=== PATIENT | male | born 1930 | race Caucasian/White ===

== ENCOUNTER 2016-08-25 13:30 | Inpatient (IN) | payer MEDICARE, OTHER ==
[~2016-08-25] VITALS: Ht 175.3 cm; Wt 50.4 kg
--- NOTE | ~2016-08-25 | HP ---
PATIENT'S NAME: LISETTE HARRIS [facility] AGE: 86 Y [address] ROOM: [id number] [place], [place] [address] LOCATION: [facility] ADMIT DATE: 08/25/2016 History & Physical DISCHARGE DATE: FAMILY PHYSICIAN: Compa Guerrier MD ATTENDING PHYSICIAN: ML BARNES work type 08/26/16 AO DATE OF SERVICE: I am dictating for the Hospitalist Service particularly for Dr. Bernardino Elliott who is acting as a consulting physician, Internal Medicine. CHIEF COMPLAINT: Right hip fracture. HISTORY OF PRESENT ILLNESS: The history of the present illness is obtained from visiting with the patient whom himself is a poor historian, reviewing medical records from Dr. Guerrier's office along with the current [facility] chart. Mr. Harris is an 86-year-old man with a pertinent medical history including Alzheimer's dementia, COPD, GERD, and history of CVA. The patient resides at [facility]. There is a question of a recent fall on records, question of a fall on August 20. The patient apparently began complaining of right leg pain and staff felt he was having "spasm in his thigh." He was needing more assistance up to 2 assist for transferring and also had a "dragging right foot." Ultimately arrangements were made for the patient to be brought in for an x-ray and for evaluation with Dr. Barnes. An x-ray obtained on 08/25/2016 of the pelvis showed an acutely mild displaced fracture at the distal right femoral neck. An x-ray, 2 view, of the right femur showed the proximal femoral fracture. There was proximal migration and mild valgus angulation. Left hip was intact along with the bony pelvis. Therefore, Mr. Harris is being admitted and our service was asked to consult for operative clearance. In visiting with the patient, he is resting in the hospital bed, he is mildly agitated. The patient actually denies any pain at this point. He is alert, but unable to tell me where he is. He is not able to tell me his living situation at this time. Family does not happen to be at the bedside at the time of our exam. PAST MEDICAL HISTORY: Includes: 1. History of anxiety. 2. BPH noted to be without urinary obstruction. PATIENT'S NAME: LISETTE HARRIS [facility] AGE: 86 Y [address] ROOM: [place] [address] LOCATION: [facility] ADMIT DATE: 08/25/2016 History & Physical DISCHARGE DATE: FAMILY PHYSICIAN: Compa Guerrier MD ATTENDING PHYSICIAN: ML BARNES 3. History of chronic diarrhea. 4. COPD. 5. History of CAD. 6. History of Alzheimer's dementia. 7. History of depression with anxiety. 8. History of gastric ulcer. 9. History of CVA. 10. History of hypercholesterolemia/hyperlipidemia. 11. History of hypertension, essential. 12. Iron-deficiency anemia. 13. GERD. PAST SURGICAL HISTORY: 1. Cataract extraction. 2. Hemorrhoidectomy. 3. Partial gastrectomy. 4. History of PTCA. 5. History of excision of a facial lesion. FAMILY HISTORY: Family history is reviewed and found to be noncontributory to the patient's current situation. SOCIAL HISTORY: It is noted that the patient is a current tobacco user. The patient is unable to quantify for me. Also, noted on records, he is a social drinker. The patient is . ALLERGIES: IT IS NOTED THAT THE PATIENT HAS A PENICILLIN ALLERGY. REVIEW OF SYSTEMS: A 13-point review of systems is reviewed and is negative other than what is noted in the outlining history of present illness. MEDICATIONS: At the time of admission: 1. Tylenol 650 mg p.o. q.6 h. p.r.n. pain. 2. ASA 81 mg p.o. daily. 3. Bismuth salicylate 30 mL p.o. q.2 h. p.r.n. indigestion up to 6 doses in 24 hours. 4. Calcium with vitamin D 1 tablet p.o. q.a.m. 5. Citalopram 10 mg p.o. q.a.m. 6. Plavix 75 mg p.o. q.a.m. 7. Ipratropium albuterol sulfate 1 vial INH twice daily and q.6 h. p.r.n. PATIENT'S NAME: LISETTE HARRIS [facility] AGE: 86 Y [address] ROOM: [place] [address] LOCATION: [facility] ADMIT DATE: 08/25/2016 History & Physical DISCHARGE DATE: FAMILY PHYSICIAN: Compa Guerrier MD ATTENDING PHYSICIAN: ML BARNES shortness of breath. 8. Lactamase 9000 units 2 tabs up to 3 times daily with meals and p.r.n. with snacks. 9. Lactobacillus 1 capsule p.o. q.a.m. 10. Lactose free Boost Breeze 6 ounces q.i.d. 11. Creon 24,000 units capsule 2 capsules p.o. t.i.d. 12. Namenda 10 mg p.o. daily. 13. Protonix 40 mg p.o. q.a.m. 14. Pravastatin 40 mg p.o. q.h.s. PHYSICAL EXAMINATION: VITAL SIGNS: Height 5 feet, 9 inches, weight 50.4 kg, BMI 16.4. Temp is 97.7, blood pressure 161/86, respirations 24, pulse is 73, O2 sat was 97% on room air, which bumped to 91% on 2 L of O2 per nasal cannula. GENERAL: The patient is an elderly slightly shelved appearing gentleman of slight build who is resting in bed and does not appear to be uncomfortable, but is slightly irritable. HEENT: Normocephalic, atraumatic. There is no scleral icterus. Extraocular movements are intact. Mucosal membranes appear moist. The patient has reasonable dentition. NECK: Midline. No masses appreciated. No thyromegaly. CV: The patient upon auscultation seems to have a regular rhythm and rate, S1 and S2. I cannot appreciate any murmurs. Heart sound is distant. I do not appreciate any edema of the extremities. Extremities are warm. CHEST: Clear to auscultation, diminished, particularly of the bilateral bases. ABDOMEN: Soft, nontender. I cannot appreciate any organomegaly. There are decreased bowel sounds. MUSCULOSKELETAL: The patient's nails appear normal without clubbing or cyanosis. The patient is on bed rest. Gait is not assessed. NEURO: Cranial nerves 2 through 12 are intact. The patient does have impairment of his cognitive function. He does have obvious confusion throughout our interview. The patient is alert. He is able to follow commands. LABORATORY DATA: CBC shows a white count 18,800, hemoglobin 8.5, hematocrit 27.6, platelets 698K, 85 neutrophils, 4 lymphocytes, and 10 monocytes. Renal panel sodium 142, potassium 3.8, chloride 104, bicarb 26, glucose 122, BUN 28, creatinine 1.3, and GFR 52. Prealbumin 14. UA negative for leukocytes or nitrites, proteinuria at 100 mg/dL, microscopically negative wbcs, rbcs 0-2, epithelial cells, few bacteria. Chest x-ray normal portable chest. Lungs are clear. Please refer to the aforementioned findings on the x-ray findings of the right femur and pelvis. EKG: An EKG was obtained. The patient does appear to have some PVCs. I will PATIENT'S NAME: LISETTE HARRIS [facility] AGE: 86 Y [address] ROOM: [address] [address] LOCATION: [facility] ADMIT DATE: 08/25/2016 History & Physical DISCHARGE DATE: FAMILY PHYSICIAN: Compa Guerrier MD ATTENDING PHYSICIAN: ML BARNES review with Dr. Elliott. IMPRESSION: 1. Right proximal femur fracture, mildly displaced. The plan at this point is to proceed with a right hip hemiarthroplasty on 08/26/[address] Barnes. 2. The patient of course all things considered has a poor baseline going into this moderate risk surgery. 3. Chronic obstructive pulmonary disease. Continue with his inhalers and be aggressive with IS and O2 to keep sats greater than 90%. 4. Hypertension, essential. Does not appear the patient is currently on any antihypertensive. We will monitor this and treat as needed appropriately. 5. Alzheimer's dementia. We will continue with his Namenda. The patient will be at high-risk for postoperative delirium. Given his underlying dementia, we will try to limit use of narcotics as much as possible. 6. Hyperlipidemia, continue with the statin. 7. History of cerebrovascular accident, we will hold Plavix at this point. We will resume when felt reasonable postoperatively. 8. Generalized weakness. The patient will benefit from fpc care while recovering from his surgery. The patient will need placement. Care Management has been notified and are currently assessing options for plan of discharge. 9. Deep vein thrombosis prophylaxis. We will use sequential compression devices at this point. Deep vein thrombosis prophylaxis as per Orthopedics in the postoperative period. 10. Preoperative clearance. I will discuss this case further with Dr. Elliott and have him review records. Ultimately, clearance will come from Dr. Elliott, but presume that this patient will be cleared to proceed to the OR on 08/26/2016. Thank you for allowing us to help care for this pleasant patient. MANOJ NAZARIO PA-C FOR MD DOLORES PONCE/anna /[id number] CC: MD Compa Mejia MD PATIENT'S NAME: LISETTE HARRIS [facility] AGE: 86 Y [address] ROOM: [place] [address] LOCATION: [facility] ADMIT DATE: 08/25/2016 History & Physical DISCHARGE DATE: FAMILY PHYSICIAN: Compa Guerrier MD ATTENDING PHYSICIAN: ML BARNES Corrected work type 08/26/16 AO D: T: 922 HISTORY & PHYSICAL
--- NOTE | ~2016-08-25 | CON ---
PATIENT'S NAME: LISETTE HARRIS [facility] AGE: 86 Y [address] ROOM: [address] [address] LOCATION: [facility] ADMIT DATE: 08/25/2016 Consultation DISCHARGE DATE: FAMILY PHYSICIAN: Compa Guerrier MD ATTENDING PHYSICIAN: ML BARNES ADDENDUM: ASSESSMENT: Leukocytosis, not suspicious for infection given the results of the UA and chest x-ray. I suspect this may be stress induced. We will monitor. MANOJ B MICHEL NAZARIO FOR MD DOLORSE PONCE/anna /[id number] d: 08/26/16 0024 t: 09/06/16 1925, CONSULTATION REPORT
--- NOTE | ~2016-08-25 | OR ---
[facility] 86 Y [address] ROOM: [place] [address] LOCATION: [facility] ADMIT DATE: 08/25/2016 OR/Procedure Report DISCHARGE DATE: FAMILY PHYSICIAN: Compa Guerrier MD ATTENDING PHYSICIAN: ML BARNES SURGEON: Ml Barnes MD PARKS RECREATION COORDINATOR: 1. Charanjit Sanchez CST/JAME. 2. Ml Fletcher DATE OF PROCEDURE: 08/26/2016 PRE-OP DIAGNOSIS: Right hip displaced femoral neck fracture. POST-OP DIAGNOSIS: Right hip displaced femoral neck fracture. OPERATION: Right hip hemiarthroplasty. ANESTHESIA: General endotracheal anesthesia (spinal anesthesia precluded because he is on Plavix) plus local anesthesia (ropivacaine with epinephrine). ESTIMATED BLOOD LOSS: Less than 100 mL. DRAIN: None. SPECIMEN: None. COMPLICATIONS: None. IMPLANTS: 1. Marianna Accolade II, size 7, high-offset, uncemented femoral component. 2. A 50-mm bipolar femoral head with 28-mm inner femoral head with +4 mm neck length. INDICATIONS FOR SURGERY: Mr. Harris is an 86-year-old male who presents with a displaced right femoral neck fracture. The patient has been thoroughly counseled regarding risks, benefits, and limitations and alternatives to hemiarthroplasty. I have specifically reviewed the risks and implications of infection, deep venous thrombosis, pulmonary embolism, mortality, neurovascular complications, blood transfusion (and associated potential for disease transmission or transfusion reaction), instability, leg length discrepancy, mechanical deterioration of the components (due to wear and or loosening), and the potential need for revision. We have also discussed the potential need for conversion to total hip replacement. DESCRIPTION OF PROCEDURE: The patient was positioned in a lateral decubitus position with the right side up after administration of anesthesia and [facility] AGE: 86 Y [address] ROOM: [place] [address] LOCATION: [facility] ADMIT DATE: 08/25/2016 OR/Procedure Report DISCHARGE DATE: FAMILY PHYSICIAN: Compa Guerrier MD ATTENDING PHYSICIAN: ML BARNES prophylactic antibiotics. An axillary roll was placed and the non-operative leg was well padded. The pelvis was locked perpendicularly to the floor on a pegboard. The right hip and entire operative extremity were prepped and draped with vigilant sterile technique. The patient's name as well as the intended operative side and procedure were confirmed with a verbal time-out involving myself, the circulating nurse, the scrub nurse, and the anesthesiologist. The right hip was approached through a standard posterolateral incision. The fascia robby and the gluteus curtis fascia were sharply divided in line with the overlying skin incision. The sciatic nerve was identified and was vigilantly protected throughout the entire case. The short external rotators and posterior capsule were divided from their respective femoral insertions and tagged with four #1 Ethibond sutures for later repair. The femoral neck fracture was exposed by means of combined flexion, adduction, and internal rotation. A femoral neck osteotomy was performed with an oscillating saw immediately distal to the most distal extent of the femoral neck fracture. The femoral head was extracted with the [employer] femoral head extraction device. The femoral head was sized. Inspection of the femoral head demonstrated no articular cartilage degeneration. There was a vertical fracture through the base of the femoral neck, which terminated approximately 6-mm proximal to the proximal margin of the lesser trochanter. There was no distal propagation of the fracture, but I placed a prophylactic cerclage cable immediately proximal to the lesser trochanter. Circumferential acetabular exposure was obtained. Inspection of the acetabulum demonstrated no articular cartilage degeneration. There was a hemarthrosis. The acetabular labrum was intact. Attention was next focused upon femoral preparation. The femoral canal initiator was utilized. No reaming was performed (except for with a canal finder). The patient was noted to be severely osteopenic. A prophylactic cerclage cable was placed due to the distal extent of the fracture as well as due to the patient's osteopenia. The femoral canal was subsequently sequentially progressively broached up to a size 7. The size 7 broach obtained excellent axial and rotational stability. Trial reductions with the above specified construct yielded acceptable stability and acceptable reproduction of leg length and offset. All trial components were removed. The final femoral component was impacted into position. The femoral component achieved excellent axial and rotational stability. The trunnion of the femoral component was vigilantly protected prior to placement of the femoral PATIENT'S NAME: LISETTE HARRIS [facility] AGE: 86 Y [address] ROOM: [address] [address] LOCATION: [facility] ADMIT DATE: 08/25/2016 OR/Procedure Report DISCHARGE DATE: FAMILY PHYSICIAN: Compa Guerrier MD ATTENDING PHYSICIAN: ML BARNES. The trunnion of the femoral component was thoroughly cleaned and dried prior to placement of the femoral head. The incision was thoroughly irrigated with bacteriostatic pulsatile saline lavage multiple times throughout the case. The entire joint space was thoroughly inspected and thoroughly irrigated to assure that there was no residual debris of any sort. A final reduction was then performed. After the final reduction, the hip could be firmly externally rotated in full extension and zero degrees of abduction without anterior subluxation. In neutral rotation and zero degrees of abduction, the hip could be firmly flexed to 120 degrees without instability. At 90 degrees of flexion and zero degrees of abduction, the hip could be internally rotated to 60 degrees before there was any hint of posterior subluxation. The posterior capsule and short external rotators were repaired through two drill holes in the posterior aspect of the greater trochanter. The fascia robby and gluteus curtis fascia were closed with multiple simple and [id number] interrupted #1 Ethibond and #1 Vicryl sutures. Subcutaneous tissues were thoroughly re-irrigated with bacteriostatic pulsatile saline lavage. Subcutaneous tissues were re-approximated with simple buried interrupted #0 Vicryl sutures. The skin was closed with superficial buried interrupted 2-0 Vicryl sutures followed by a running subcuticular 3-0 Monocryl nhung, followed by Octylseal, follwed by Steri-Strips with benzoin, followed by an occlusive Mepilex dressing. There were no intra-operative complications. MD TEOFILO CARD/westleyl /[id number] d: 08/27/16 0010 t: 08/31/16 0753, OPERATIVE SUMMARY
--- NOTE | ~2016-08-25 | DS ---
PATIENT'S NAME: LISETTE HARRIS [facility] AGE: 86 Y [address] ROOM: [place] [address] LOCATION: [facility] ADMIT DATE: 08/25/2016 Discharge Summary DISCHARGE DATE: 08/31/2016 FAMILY PHYSICIAN: Compa Guerrier MD ATTENDING PHYSICIAN: Rylan Chacon PRIMARY DIAGNOSIS: Right hip displaced femoral neck fracture. SECONDARY DIAGNOSES: 1. History of anxiety. 2. BPH. 3. History of chronic diarrhea. 4. COPD. 5. History of CAD. 6. History of Alzheimer's. 7. Preop anemia. PROCEDURE PERFORMED: Right hip hemiarthroplasty. HISTORY: The patient is an 86-year-old male, who presents with right hip displaced femoral neck fracture and associated severely compromised activities of daily living. The patient has decided to proceed with right hip displaced femoral neck fracture after having been thoroughly counseled regarding the risks, benefits, limitations and alternatives. Please refer to the outpatient clinic notes and admission history and physical for this patient. HOSPITAL COURSE: The patient underwent a total right hip hemiarthroplasty on 08/26/2016 without complications. General endotracheal anesthesia plus local anesthesia were utilized. The patient received 24 hours of perioperative prophylactic antibiotics and remained hemodynamically stable, neurovascularly intact throughout the entire hospital course. The postoperative prophylactic deep venous thrombosis prophylaxis consisted of Xarelto, early mobilization and pneumatic compression devices. Daily physical therapy for gait training, transfer training, and reinforcement of hip dislocation precautions were received. The patient progressed well in physical therapy. On the date of discharge, 08/31/2016, the incision at the hip was healing well and showed no signs of infection. DISPOSITION: [facility]. DISCHARGE ACTIVITY: The patient is to bear weight as tolerated with strict hip dislocation precautions as instructed. There are to be no dressing changes. Dr. Chacon is to be notified immediately if there is any increased pain, fevers, chills, erythema or drainage. PATIENT'S NAME: LISETTE HARRIS [facility] AGE: 86 Y [address] ROOM: [place] [address] LOCATION: [facility] ADMIT DATE: 08/25/2016 Discharge Summary DISCHARGE DATE: 08/31/2016 FAMILY PHYSICIAN: Compa Guerrier MD ATTENDING PHYSICIAN: Rylan Chacon DISCHARGE MEDICATIONS: 1. Xarelto 10 mg 1 tablet p.o. daily for 12 days for postoperative DVT prophylaxis. 2. [place] 5/325 mg 1-2 tablets p.o. every 4 hours p.r.n. for pain. 3. He was then instructed to continue all his other preadmission medications as instructed by his internal medicine doctor. FOLLOWUP: Followup appointment is to be with Dr. Chacon's office 79 days postoperatively. This will be his initial postoperative evaluation. MARQUISE HILLMAN PA-C FOR MD CHRISTOPHER CARD/anna /[id number] d: 09/07/16 0320 t: 09/07/16 1032, DISCHARGE SUMMARY
--- NOTE | ~2016-08-25 | CON ---
PATIENT'S NAME: LISETTE HARRIS [facility] AGE: 86 Y [address] ROOM: [place] [id number] LOCATION: [facility] ADMIT DATE: 08/25/2016 Consultation DISCHARGE DATE: FAMILY PHYSICIAN: Compa Guerrier MD ATTENDING PHYSICIAN: ML BARNES DATE OF CONSULTATION: 08/30/2016 REFERRING PHYSICIAN: DELISA PICKETT MD CONSULTATION NOTE CHIEF COMPLAINT/REASON FOR CONSULTATION: Urinary retention. HISTORY OF PRESENT ILLNESS: The patient is a pleasantly demented 86-year-old male, who I was consulted to see during this hospitalization for some urinary retention. He had presented with a displaced right femoral neck fracture secondary to a fall at his care facility and underwent a right hip hemiarthroplasty with Dr. Ml Barnes on 08/26/2016. He has had some difficulties with postoperative urinary retention requiring replacement of indwelling Damon catheter. Over the weekend, he also had pulled his catheter causing some trauma and there was some blood noted in the urine which has since cleared. The patient has no previous history of prostate surgery or had he been treated in the past based on review of his records for BPH. The patient is being discharged today to a shelter facility. The patient has no reported personal history of prostate cancer as well as no reported family history of any prostate issues. The family is at bedside and they have no further questions or concerns at this time. There was no other reports of previous episodes of blood in his urine. PAST MEDICAL HISTORY: 1. Anxiety. 2. BPH. 3. History of chronic diarrhea. 4. COPD. 5. Coronary artery disease. 6. History of Alzheimer's dementia. 7. Depression. 8. History of gastric ulcer. 9. History of CVA. 10. Hyperlipidemia. 11. History of hypertension. 12. Iron-deficiency anemia. 13. GERD. PATIENT'S NAME: RADHA HARRISTHE [facility] AGE: 86 Y [address] ROOM: [address] [address] LOCATION: [facility] ADMIT DATE: 08/25/2016 Consultation DISCHARGE DATE: FAMILY PHYSICIAN: Compa Guerrier MD ATTENDING PHYSICIAN: ML BARNES PAST SURGICAL HISTORY: 1. Cataract extraction. 2. Hemorrhoidectomy. 3. Partial gastrectomy. 4. History of PTCA. 5. History of excision of facial lesion. FAMILY HISTORY: Noncontributory. SOCIAL HISTORY: The patient currently resides in a nursing facility. There is some reported history of tobacco use. He is also a social drinker. The patient is . ALLERGIES: PENICILLIN. REVIEW OF SYSTEMS: A full 10 plus point review of systems was performed with pertinent positive and negative findings also included in the history of present illness. All other systems were reviewed and are otherwise negative. MEDICATIONS: See hospitalization medication reconciliation. PHYSICAL EXAMINATION: VITAL SIGNS: The patient's temperature is 99.2 Fahrenheit, pulse is 104, blood pressure 155/69, respiratory rate 18, and oxygen saturation 90% on room air. CONSTITUTIONAL: No acute distress. The patient is awake, but not oriented. HEENT: Extraocular muscles intact. Mucous membranes moist. No drainage per ears or nose. CARDIAC: Good peripheral perfusion. RESPIRATORY: No audible wheezing. ABDOMEN: Soft, nontender, and nondistended. GENITOURINARY: Indwelling Damon catheter draining clear yellow urine output. His penis is uncircumcised with no penile lesions noted. Testes are palpably normal bilaterally. EXTREMITIES: Moves all extremities. NEUROLOGIC: No focal deficits noted. HEMATOLOGIC: No active sites of bruising or bleeding. IMPRESSION: 1. Urinary retention. 2. Benign prostatic hyperplasia. PATIENT'S NAME: LISETTE HARRIS [facility] AGE: 86 Y [address] ROOM: [place] [address] LOCATION: [facility] ADMIT DATE: 08/25/2016 Consultation DISCHARGE DATE: FAMILY PHYSICIAN: Compa Guerrier MD ATTENDING PHYSICIAN: ML BARNES PLAN: I had a long discussion today with the patient and family regarding my recommendations. I do suspect that he has some BPH with bladder outlet obstruction. I also explained to them that his urinary retention may be multifactorial, but also with some contribution secondary to some of his postoperative pain medications as well as him being less mobile following surgery. Regardless, I would recommend leaving the catheter in place as he is getting discharged to his care facility today. We will plan for them to remove the catheter with a trial of void on 09/13/2016. Given previous difficulties with catheter placement, if they need to replace one for continued urinary retention, would recommend using an 18-Georgian coude Damon catheter. I would be hesitant in starting him on any tamsulosin given the possible side effect of orthostatic hypotension and the patient is already at higher risk for falls. The family's questions and concerns were addressed. They have no further at this time. Certainly, should the patient have continued difficulties moving forward with urinary retention, they can have him referred back to our clinic at [facility]. Please do not hesitate to call with any questions or concerns. DELISA PICKETT MD GP/anna /[id number] d: 08/30/16 1740 t: 09/09/16 1102, CONSULTATION REPORT
--- NOTE | 2016-08-25 14:43 | NUR ---
Pt is 86 y/o male admit for fractured right hip for . Pt allergic to PCN. Red and yellow bracelet on. Pt resides at [facility]. Hx of CVA,hypercholest,htn,cough,COPD,ulcers-had 1/3 of stomach removed,anxiety. Pt is alert and oriented x3. Poor historian at times. [facility] nurse with patient reports he fell in his room about a week ago and has been walking with his walker. Nurses noticed he started to drag his right leg/foot on Tuesday. Pt had no c/o pain until yesterday.
[2016-08-25] MEDS ORDERED: CITALOPRAM HBR10 MG PO (15:12)
[2016-08-25] MEDS ORDERED: PRAVACHOL40 MG PO (15:13)
[2016-08-25] MEDS ORDERED: PLAVIX75 MG PO (15:14)
[2016-08-25] MEDS ORDERED: PROTONIX40 MG PO (15:15)
[2016-08-25 15:16] LABS: BASOPHIL # 0.1 K/uL (0.0-0.2); BASOPHIL % 0.3 %; HEMATOCRIT 27.6 % (33.0-50.0); HEMOGLOBIN 8.5 g/dL (11.0-16.0); IMMATURE GRANULOCYTE # 0.1 K/uL (0.0-0.3); IMMATURE GRANULOCYTE % 0.7 %; LYMPHOCYTE # 0.8 K/uL (0.8-4.0); LYMPHOCYTE % 4.4 %; MCH 24.4 pg (27.0-34.0); MCHC 30.8 gm/dL (32.0-36.5); MCV 79.1 fl (83.0-98.0); MONOCYTE # 1.9 K/uL (0.0-1.0); MONOCYTE % 9.9 %; MPV 9.1 fl (9.4-12.4); NEUTROPHIL # (ANC) 15.9 K/uL (1.4-9.0); NEUTROPHIL % 84.7 %; NRBC % 0 /100WBC (0-0.00); PLATELET COUNT 698 K/uL (150-450); RBC 3.49 M/uL (3.50-5.50); RDW-CV 16.9 % (11.9-14.6)
[2016-08-25] MEDS ORDERED: DUONEB INH ×2 (15:16)
[2016-08-25] MEDS ORDERED: CREON DR 24,001 EACH PO (15:17)
--- NOTE | 2016-08-25 15:18 | NUR ---
RUPERT Loving recieved a call from a nurse in Dr. Chacon's office informing us of patient and that he would likely need placement in a mcc. Fabienne and I [facility] the [facility] to [facility] their male bed availability this Tuesday, which would likely be when the pt would be discharged. Each mcc stated they could have a male bed available on Tuesday. 1500 Fabienne and I visited with patient, Fabienne introduced ourselves and the CM role in between patient getting prepped for surgery. Patient stated he resides in [facility], which is likely where his fall took place. I called pt's daughter, Maylin, at [phone] after our visit. I explained care management role to her and asked if she would be at the hospital tomorrow to discuss possible placement or other discharge options for her father. Planned to meet with her and pt sometime tomorrow. Will continue to follow pt's progress. RUPERT Investigator Welfare TH.
[2016-08-25] MEDS ORDERED: NAMENDA10 MG PO (15:19)
[2016-08-25] MEDS ORDERED: ARICEPT10 MG PO (15:19)
[2016-08-25 15:20] LABS: BILIRUBIN URINE NEGATIVE (NEGATIVE); BLOOD URINE NEGATIVE /UL (NEGATIVE); COLOR URINE YELLOW (YELLOW); GLUCOSE URINE NEGATIVE (NEGATIVE); KETONE URINE NEGATIVE (NEGATIVE); LEUKOCYTES URINE NEGATIVE /UL (NEGATIVE); NITRITE URINE NEGATIVE (NEGATIVE); PROTEIN URINE 100 mg/dL (NEGATIVE); TURBIDITY URINE CLEAR (CLEAR); UROBILINOGEN URINE 1 mg/dL (NORMAL)
[2016-08-25 15:20] LABS: WBC 18.8 K/uL (4.0-11.0)
[2016-08-25] MEDS ORDERED: ASPIRIN LO-DOSE81 MG PO (15:20)
[2016-08-25] MEDS ORDERED: ACIDOPHILUS LA1 EAC1 PO (15:21)
[2016-08-25] MEDS ORDERED: CALCIUM 600 +1 EAC3 PO (15:22)
[2016-08-25 15:23] LABS: INR - (THERAPEUTIC) 1.1 (0.9-1.1); PROTIME 11.8 SECONDS (9.6-11.1); PTT 28 SECONDS (25-32)
[2016-08-25] MEDS ORDERED: DAIRY RELIE9000 UNIT PO ×2 (15:27→15:35)
[2016-08-25] MEDS ORDERED: BOOST BREEZE237 ML PO (15:28)
[2016-08-25] MEDS ORDERED: TYLENOL325 MG PO (15:29)
[2016-08-25] MEDS ORDERED: BISMUTH PO (15:33)
[2016-08-25 15:34] LABS: ALBUMIN 2.6 gm/dL (3.5-5.0); ANION GAP 15.8 (10.0-19.0); CALCIUM 9.2 mg/dL (8.5-10.5); CREATININE 1.3 mg/dL (0.6-1.3); PHOSPHORUS 3.8 mg/dL (2.5-4.9); POTASSIUM 3.8 mMol/L (3.7-5.1)
[2016-08-25 15:52] LABS: BACTERIA URINE FEW (NEGATIVE); RBC URINE NEGATIVE #/HPF (NEGATIVE); WBC URINE NEGATIVE #/HPF (NEGATIVE)
[2016-08-25 15:53] LABS: AMORPHOUS URINE 1+ (NEGATIVE); EPITHELIAL URINE 0-2 #/HPF (NEGATIVE)
--- NOTE | 2016-08-25 17:31 | NUR ---
PT ARRIVED ON FLOOR AT [address] GUTIERREZ OFFICE WITH RT FRACTURED HIP. NPO AFTER MIDNIGHT FOR OR TOMORROW. PT IS ALERT BUT FORGETFUL. IV STARTED BY FLIGHT IN RT FORARM WITH IV FLUIDS INFUSING. DAVILA CATH PLACED. UA SENT TO LAB. PT GIVEN MORPHINE 1MG IV GIVEN THIS AFTERNOON AROUND 1630. REPOSITIONED MICHELE.
--- NOTE | 2016-08-26 04:56 | NUR ---
Shift Summary: Patient has been NPO since midnight for surgery today. Does not have a signed permit. Patient is unable to sign it. He is confused all the time. Oriented to person only. Has good pain control with IV morphine. Last dose at 0321. Has smith with 1295ml out.
[2016-08-26 05:25] LABS: BASOPHIL % 0.3 %; EOSINOPHIL # 0.1 K/uL (0.0-0.5); EOSINOPHIL % 0.4 %; HEMATOCRIT 23.8 % (33.0-50.0); IMMATURE GRANULOCYTE # 0.1 K/uL (0.0-0.3); IMMATURE GRANULOCYTE % 0.6 %; LYMPHOCYTE # 0.6 K/uL (0.8-4.0); LYMPHOCYTE % 5.1 %; MCH 24.2 pg (27.0-34.0); MCHC 31.1 gm/dL (32.0-36.5); MCV 77.8 fl (83.0-98.0); MONOCYTE # 1.1 K/uL (0.0-1.0); MONOCYTE % 9.3 %; NEUTROPHIL # (ANC) 10.2 K/uL (1.4-9.0); NEUTROPHIL % 84.3 %; NRBC % 0 /100WBC (0-0.00); PLATELET COUNT 578 K/uL (150-450); RBC 3.06 M/uL (3.50-5.50); RDW-CV 16.9 % (11.9-14.6); WBC 12.1 K/uL (4.0-11.0)
[2016-08-26 05:26] LABS: HEMOGLOBIN 7.4 g/dL (11.0-16.0)
--- NOTE | 2016-08-26 13:25 | NUR ---
1000 Met with patient's daughter, Maylin, while pt was sleeping. Introduced self and CM role to Maylin, and discussed possible placement options. Pt going to surgery around noon today. Skilling nursing placement appears to be the best option after surgery. Daughter identified [facility] as first option for her father, particularly because he has a sister that currently resides there. She was not very familiar with the other places besides being able to identify [place] as being the last option due to bad previous experience there. Discussed how it works regarding insurance coverage for SNF stays. Told daughter I would call [facility] today informing them of patient. Will continue to follow and provide support as needed. CM [employer] TH. 1300 Left voicemail for Ewa at [facility] informing her of patient.
--- NOTE | 2016-08-26 17:29 | NUR ---
Significant Event: Returned to unit at 1515. Dressing C/D/I. Damon patent. Very drowsy since return. O2 at 1L. Denies pain. Family at bedside. Follow up: First hourly post op vital due at 1900
--- NOTE | 2016-08-27 03:44 | NUR ---
Shift Summary: Patient is disoriented to time and place all the time. Is cooperative. Stood at bedside and took a couple of steps last night with walker and one assist. Has smith with 425ml out this shift. Smith to be removed tomorrow morning. He is tolerating regular diet. Needs help with eating due to hand tremors. Gave one laura at 0328.
[2016-08-27 06:30] LABS: HEMATOCRIT 22.1 % (33.0-50.0)
--- NOTE | 2016-08-27 12:47 | NUR ---
Talked with Ewa at [facility] yesterday afternoon and Bing at [facility] earlier today. Informed each of patient and faxed over his information for the homes to assess. Will continue to follow and update patient and family on placement situation. CM sport intern TH.
--- NOTE | 2016-08-27 17:55 | NUR ---
Significant Event: PT ALERT BUT CONFUSED. UP WITH 2 ASSIST IN THE RECLINER TODAY AND THEN TO BED THIS AFTERNOON. DRESSING TO RT HIP INTACT. ICE TO HIP. PT DENIES DISCOMFORT. DAVILA CATH INTACT. DC TOMORROW AM. 02 ON 1 LPM/NC. FAMILY HERE MOST OF THIS SHIFT. COOPERTIVE WITH CARES. Follow up:
--- NOTE | 2016-08-28 04:01 | NUR ---
Patient is very confused and forgetful at times, pulled out all IVs tonight and pulled stat lock off cath it was replaced,small amount of blood in cath tubing due to him pulling on it, dressing to hip is clean dry and intact, tranfers one-two assist with walker and gaitbelt, taking narco for pain control
[2016-08-28 12:54] LABS: BASOPHIL # 0.1 K/uL (0.0-0.2); BASOPHIL % 0.5 %; EOSINOPHIL # 0.1 K/uL (0.0-0.5); EOSINOPHIL % 0.6 %; HEMATOCRIT 24.5 % (33.0-50.0); HEMOGLOBIN 7.6 g/dL (11.0-16.0); IMMATURE GRANULOCYTE # 0.1 K/uL (0.0-0.3); IMMATURE GRANULOCYTE % 0.9 %; LYMPHOCYTE % 7.1 %; MCH 24.6 pg (27.0-34.0); MCV 79.3 fl (83.0-98.0); MONOCYTE # 1.1 K/uL (0.0-1.0); NEUTROPHIL # (ANC) 11.9 K/uL (1.4-9.0); NEUTROPHIL % 82.9 %; NRBC % 0 /100WBC (0-0.00); PLATELET COUNT 506 K/uL (150-450); RBC 3.09 M/uL (3.50-5.50); RDW-CV 16.8 % (11.9-14.6); WBC 14.3 K/uL (4.0-11.0)
[2016-08-28 13:09] LABS: ALBUMIN 2.3 gm/dL (3.5-5.0); ANION GAP 14.3 (10.0-19.0); BLOOD UREA NITROGEN 25 mg/dL (6-24); CALCIUM 8.2 mg/dL (8.5-10.5); CHLORIDE 108 mMol/L (96-110); CO2 23 mMol/L (22-32); CREATININE 1.1 mg/dL (0.6-1.3); ESTIMATED GFR (MDRD EQUATION) > 60; PHOSPHORUS 2.2 mg/dL (2.5-4.9); POTASSIUM 4.3 mMol/L (3.7-5.1); SODIUM 141 mMol/L (135-145)
--- NOTE | 2016-08-28 13:54 | NUR ---
Significant Event: Disoriented to time and palce. Pulled out IV's last night and ripped off dressing to R) hip. Replaced mepilex dressing. Low urine output. Started IV in L)hand and gave 500ml of NS over 2hrs. Smith intact with small amount of bloody urine. 54.0 kilograms. Setup feeder. Keep smith in for now with strict I/O. Up with 2 assist with walker. 3L/O2 per nasal cannula. VSS. CSM WNL. Follow up:
--- NOTE | 2016-08-29 04:29 | NUR ---
Pleasantly confused and forgetful, dressing clean dry and intact, csm with in normal limits, 2 assist with walker and gaitbelt, was scratching penis had small amount of bloody drainage from tip, tara care done and put a brief on to hopefully prevent pulling catheter and itching, has rested well tonight given 2 Narco [id number] for pain control
--- NOTE | 2016-08-29 17:57 | NUR ---
Significant Event: PT alert, disoriented to time and place, forgetful. VSS, O2 at 1L per nasal cannula. PT ambulates with 2 assist gait belt and walker. Tylenol given for pain at 1700. Dressing intact to R)hip. Damon patent, urology consulted, will see tomorrow. IV to L)wrist. Pleasant and cooperative with cares. Follow up:
--- NOTE | 2016-08-29 22:21 | NUR ---
Significant Event: Patient alert, oriented to person and place. Confused statements. Denies pain. VSS on room air. Damon patent draining dark yellow urine. Bloody drainage noted from penis. 2 assist with transfers. Cooperative the [facility] cares. Follow up: continue plan of care.
[2016-08-30 04:41] LABS: BASOPHIL % 0.3 %; EOSINOPHIL # 0.2 K/uL (0.0-0.5); EOSINOPHIL % 1.9 %; HEMATOCRIT 22.4 % (33.0-50.0); IMMATURE GRANULOCYTE # 0.2 K/uL (0.0-0.3); IMMATURE GRANULOCYTE % 1.2 %; LYMPHOCYTE # 0.5 K/uL (0.8-4.0); LYMPHOCYTE % 4.3 %; MCH 24.5 pg (27.0-34.0); MCHC 30.8 gm/dL (32.0-36.5); MCV 79.4 fl (83.0-98.0); MONOCYTE # 0.8 K/uL (0.0-1.0); MONOCYTE % 6.1 %; MPV 8.8 fl (9.4-12.4); NEUTROPHIL # (ANC) 10.6 K/uL (1.4-9.0); NEUTROPHIL % 86.2 %; NRBC % 0 /100WBC (0-0.00); PLATELET COUNT 523 K/uL (150-450); RBC 2.82 M/uL (3.50-5.50); RDW-CV 17.3 % (11.9-14.6); WBC 12.4 K/uL (4.0-11.0)
[2016-08-30 04:43] LABS: HEMOGLOBIN 6.9 g/dL (11.0-16.0)
[2016-08-30 04:55] LABS: ANION GAP 13.1 (10.0-19.0); BLOOD UREA NITROGEN 18 mg/dL (6-24); CALCIUM 8.3 mg/dL (8.5-10.5); CHLORIDE 107 mMol/L (96-110); CO2 26 mMol/L (22-32); ESTIMATED GFR (MDRD EQUATION) > 60; PHOSPHORUS 2.1 mg/dL (2.5-4.9); POTASSIUM 4.1 mMol/L (3.7-5.1); SODIUM 142 mMol/L (135-145)
[2016-08-30 04:59] LABS: INR - (THERAPEUTIC) 1.2 (0.9-1.1); PROTIME 13.1 SECONDS (9.6-11.1); PTT 31 SECONDS (25-32)
--- NOTE | 2016-08-30 05:15 | NUR ---
Significant Event: ALERT TO PERSON, PLACE, CONFUSED TO TIME, INAPPROPRIATE COMMENTS. BEEN REPOSITIONED IN BED. PILLOWS BETWEEN KNEES. IV SALINE LOCK. SMALL AMOUNT DK BLOODY MEATAL DRAINAGE. DAVILA CATHETER EMPTIED 500ML URINE. Follow up:
--- NOTE | 2016-08-30 12:46 | NUR ---
Talked with Ewa at [facility] this morning, she stated they plan on coming to assess pt sometime before lunch today and requested that I fax over nursing notes from Tuesday to today. Faxed over PT/OT notes earlier this morning and then faxed nursing notes after conversation with Ewa. Also faxed over PT/OT notes to [facility] this morning to keep them updated in the case [facility] will not be able to accept pt. 1030 Went and talked to pt, pt's daughter, and another family member. Told them that [facility] was coming to assess pt sometime before lunch. Pt's daughter mentioned that she went and talked with [facility] last week. Pt's daughter also stated that she thought that his discharge was to be this afternoon, which I responded wouldn't be an option because we have to wait for [facility] to make a decision about being able to accept him and there is no current safe discharge plan in place. She voiced understanding. Waiting on decision from [facility]. Will continue to follow and assist. CM Dog Warden TH.
--- NOTE | 2016-08-30 14:49 | NUR ---
A-SCREENED D/T LOS S/P R)HIP FX. NO BM SINCE ADMIT; BOWEL MEDS BEING GIVEN HT: 69 IN. WT: 50.4 KG. 69% OF IBW. BMI:16.9 LABS: NA 142, K+ 4.1, GLU 92, BUN 18, SCHOOL CHILD CARE ATTENDANT 1.0, ALB 2.0, PREALB 14.0 MEDS: MORPHINE, LASIX, NORCO, PROTONIX, PRAVACHOL, CREON 12, ZOFRAN, PRN BOWEL MEDS, DOCU, DOCULAX, MIRALAX, NAMENDA, LACTINEX, CELEXA DIET RX: REGULAR. PO INTAKE 50-100% FOR THE MOST PART EST NUTR NEEDS: 3427-7571 KCALS (35-40 KCALS/KG) 50-76 GM PROTEIN (1.0-1.5 GM/KG) 1 ML FLUID/KCAL D-AT NUTRITION RISK W/UNDERWEIGHT MILL SET UP R/T INDEQUATE INTAKE OF NUTRIENTS AEB BMI 16.4, INTAKE RECORDS. I-ADD ENSURE ENLIVE TID W/MEALS M/E-GOAL: PO INTAKE OF MEALS AND SUPPLEMENT >/=50% BY NEXT F/U 1)RECOMMEND NUTRITION SUPPLEMENT TID UPON DISCHARGE 2)F/U PO INTAKE, SUPPLEMENT, WT, AND POC IN 3-5 DAYS 3)ASSIST NEEDED
--- NOTE | 2016-08-30 17:05 | NUR ---
Significant Event: Ambulates with two assist, walker and gaitbelt. Dressing C/D/I. Damon patent. Needs one unit PRBC with Lasix and Benadryl prior. [place] 1 tab this am for restlessness. Denies pain since. CSM WNL. Follow up: [facility] tomorrow at noon
--- NOTE | 2016-08-31 04:31 | NUR ---
Significant Event: Patient is alert and oriented to self. Disoriented to time and place. Forgetful. Makes confused statements at times. Up with 2 assist walker and gait belt. WBAT to right lower extremity. Mepilex dressing to right hip is clean, dry, and intact. CSM to right lower extremity is intact. Takes pills crushed in applesauce due to chewing medications. Descanso given x 1 for pain last at 0008. Left forearm IV, saline locked. Received 1 unit of PRBCs this shift. Patient refused to be turned at times. Damon intact. Good UOP. Patient is pleasant and cooperative with cares. Follow up: To be discharged to [facility] today.
[2016-08-31 05:22] LABS: BASOPHIL % 0.3 %; EOSINOPHIL # 0.2 K/uL (0.0-0.5); EOSINOPHIL % 1.3 %; HEMOGLOBIN 8.9 g/dL (11.0-16.0); IMMATURE GRANULOCYTE # 0.2 K/uL (0.0-0.3); IMMATURE GRANULOCYTE % 1.2 %; LYMPHOCYTE # 0.8 K/uL (0.8-4.0); LYMPHOCYTE % 6.4 %; MCHC 31.6 gm/dL (32.0-36.5); MONOCYTE # 1.2 K/uL (0.0-1.0); MONOCYTE % 9.2 %; MPV 9.5 fl (9.4-12.4); NEUTROPHIL # (ANC) 10.5 K/uL (1.4-9.0); NEUTROPHIL % 81.6 %; NRBC % 0.2 /100WBC (0-0.00); PLATELET COUNT 532 K/uL (150-450); RDW-CV 16.8 % (11.9-14.6); WBC 12.9 K/uL (4.0-11.0)
[2016-08-31 05:25] LABS: HEMATOCRIT 28.2 % (33.0-50.0); MCH 24.9 pg (27.0-34.0); RBC 3.57 M/uL (3.50-5.50)
[2016-08-31 05:37] LABS: ANION GAP 10.6 (10.0-19.0); BLOOD UREA NITROGEN 20 mg/dL (6-24); CALCIUM 8.6 mg/dL (8.5-10.5); CHLORIDE 100 mMol/L (96-110); CO2 31 mMol/L (22-32); ESTIMATED GFR (MDRD EQUATION) > 60; POTASSIUM 3.6 mMol/L (3.7-5.1); SODIUM 138 mMol/L (135-145)
--- NOTE | 2016-08-31 11:52 | NUR ---
Patient is alert to self, not place or time. VSS, on room air. WBAT to the R) leg. Mepilex dressing to the R) hip is clean, dry and intact. Damon is patent. IV was removed from the L) posterior forearm. He likes to chew his meds, so his creon was opened and put in applesauce. Has been sitting in the chair most of the morning. No pain medication has been given since midnight.
--- NOTE | 2016-08-31 13:44 | NUR ---
1030 Recieved a call from Lia at [facility] about discharge orders on pt planned to leave at noon today. Orders were not completed by at that time and informed her of this. 1120 RUPERT Loving recieved call from Ewa at [facility] about discharge orders again, and the orders were still not filled out yet. Told her that we will fax them to her when they are completed. Also told her that we will call her back in about fifteen minutes and if Dr. Oglesby hasn't been around we might need to push back discharge time. 1135 Called back Ewa and decided to push back pick-up time to 1230. 12[address] Orders [address] Oglesby and we faxed them to the nurses station at [facility] at [phone]. Checked status on fax few minutes later and made sure it went through.
== END 2016-08-31 12:44 | DRG 470 ==
LOC: G3N 13:56 → GMSU 13:56 → G3N 08-26 15:18 → GMSU 08-28 17:16
PROVIDERS: Family Medicine; Internal Medicine; Nurse Practitioner Family; ADMIT Orthopaedic Surgery
PROC: 0SRR0JA Replacement of Right Hip Joint, Femoral Surface with Synthetic Substitute, Uncemented, Open Approach (ICD-10-PCS; principal; 2016-08-26)
PROC: 30233N1 Transfusion of Nonautologous Red Blood Cells into Peripheral Vein, Percutaneous Approach (ICD-10-PCS; 2016-08-30)
DX: S72.001A Fracture of unspecified part of neck of right femur, initial encounter for closed fracture (principal); E44.0 Moderate protein-calorie malnutrition; G30.9 Alzheimer's disease, unspecified; F02.80 Dementia in other diseases classified elsewhere, unspecified severity, without behavioral disturbance, psychotic disturbance, mood disturbance, and anxiety; Z68.1 Body mass index [BMI] 19.9 or less, adult; D62 Acute posthemorrhagic anemia; J44.9 Chronic obstructive pulmonary disease, unspecified; I25.10 Atherosclerotic heart disease of native coronary artery without angina pectoris; Z86.73 Personal history of transient ischemic attack (TIA), and cerebral infarction without residual deficits; E78.5 Hyperlipidemia, unspecified; I10 Essential (primary) hypertension; D50.9 Iron deficiency anemia, unspecified; K21.9 Gastro-esophageal reflux disease without esophagitis; Z95.5 Presence of coronary angioplasty implant and graft; Z79.02 Long term (current) use of antithrombotics/antiplatelets; W19.XXXA Unspecified fall, initial encounter; N40.1 Benign prostatic hyperplasia with lower urinary tract symptoms; R33.8 Other retention of urine; K59.00 Constipation, unspecified; E87.6 Hypokalemia
CPT/HCPCS: C1776; J0360; J1885; J1940; J2001; J2270; J2795; J7030; J7042; P9016

== ENCOUNTER 2016-10-18 12:06 | Emergency (ER) | payer MEDICARE, OTHER ==
--- NOTE | ~2016-10-18 | ER ---
PATIENT'S NAME: LISETTE HARRIS [facility] AGE: 86 Y [address] ROOM: [place] [address] LOCATION: [facility] ADMIT DATE: 10/18/2016 ER/Outpatient Report DISCHARGE DATE: 10/18/2016 FAMILY PHYSICIAN: Compa Guerrier MD ATTENDING PHYSICIAN: León Regalado TIME OF ARRIVAL: 1208 hours. TIME OF EXAM: 1208 hours. CHIEF COMPLAINT: Hypoxia. HISTORY OF PRESENT ILLNESS: The patient is a resident at [facility]. They were concerned today because he has had increased confusion and agitation. His O2 sat on 2 L at their facility was only 77% to 82%. They did up his oxygen to 4 L. His O2 sat did not improve. They were concerned that he may have started lung infection. He has had a productive cough. detention states he has not had a fever. ALLERGIES: PENICILLIN. CURRENT MEDICATIONS: Current medications are on his chart and reviewed by me. PAST MEDICAL HISTORY: Past medical history is on his chart and was reviewed by me. PAST SURGERIES: He did have a total left hip done in August of this year. SOCIAL HISTORY: Denies use of tobacco, drugs, or alcohol. Does live at [facility]. Came per car from [facility]. His daughter is here with him. REVIEW OF SYSTEMS: Negative other than those mentioned in the HPI. PHYSICAL EXAMINATION: VITAL SIGNS: He weighed 48.8 kg. Blood pressure is 139/77, pulse is 66, respirations 19, temp of 97.6, tympanic, O2 sat was 99% on 4 L nasal cannula. PATIENT'S NAME: LISETTE HARRIS [facility] AGE: 86 Y [address] ROOM: [place] [address] LOCATION: [facility] ADMIT DATE: 10/18/2016 ER/Outpatient Report DISCHARGE DATE: 10/18/2016 FAMILY PHYSICIAN: Compa Guerrier MD ATTENDING PHYSICIAN: León Regalado O2 saturation was decreased to 2 L per nasal cannula, which is what the patient routinely is on at home, O2 sats remained 96% to 98%. GENERAL: The patient is awake and alert, he is aware of the situation, aware of the people around him, he is not able to state where he is at or the time, give us the date. He is calm, cooperative. SKIN: Curtis, warm, and dry. RESPIRATIONS: Even and nonlabored. LUNGS: Lung sounds are clear throughout. HEART: Regular rate and rhythm. ABDOMEN: Soft and nondistended. Bowel sounds present. He does have a Damon catheter in for history of urinary retention. He is thin and needed assistance to get from the wheelchair into the bed. LABORATORY DATA: Lab work was drawn. CBC: White count is 11.3, hemoglobin was 8.9, which is within his norm. Chem panel within normal limits. Lactate was 2.2. Procalcitonin was normal. Chest x-ray was completed. Radiologist reports no signs of pneumonia. The patient was reviewed with Dr. Regalado. IMPRESSION: 1. Cough. 2. Chronic obstructive pulmonary disease. 3. Oxygen-dependent. PLAN: The patient will be discharged back to [facility]. Continue his O2 at 2 L. Monitor the patient. Followup with Dr. Guerrier as symptoms warrant. The patient's daughter verbalizes understanding. RAMIRO SANCHEZ APRN FOR MD JILL COMBS/anna /[id number] d: 10/19/16 0022 t: 10/30/16 1811, OUTPATIENT REPORT
[~2016-10-18 12:06] MED LIST: ACIDOPHILUS LA1 EAC1 PO; ARICEPT10 MG PO; ASPIRIN LO-DOSE81 MG PO; BISMUTH PO; BOOST BREEZE237 ML PO; CALCIUM 600 +1 EAC3 PO; CITALOPRAM HBR10 MG PO; CREON DR 24,001 EACH PO; DAIRY RELIE9000 UNIT PO; DUONEB INH; NAMENDA10 MG PO; PLAVIX75 MG PO; PRAVACHOL40 MG PO; PROTONIX40 MG PO; TYLENOL325 MG PO
[2016-10-18 12:40] LABS: BASOPHIL % 0.4 %; EOSINOPHIL # 0.1 K/uL (0.0-0.5); EOSINOPHIL % 1.1 %; HEMATOCRIT 29.7 % (33.0-50.0); HEMOGLOBIN 8.9 g/dL (11.0-16.0); IMMATURE GRANULOCYTE # 0.1 K/uL (0.0-0.3); IMMATURE GRANULOCYTE % 0.5 %; LYMPHOCYTE # 0.7 K/uL (0.8-4.0); LYMPHOCYTE % 6.1 %; MCH 24.4 pg (27.0-34.0); MCV 81.4 fl (83.0-98.0); MONOCYTE # 1.1 K/uL (0.0-1.0); MONOCYTE % 9.3 %; MPV 8.8 fl (9.4-12.4); NEUTROPHIL # (ANC) 9.4 K/uL (1.4-9.0); NEUTROPHIL % 82.6 %; NRBC % 0 /100WBC (0-0.00); PLATELET COUNT 466 K/uL (150-450); RBC 3.65 M/uL (3.50-5.50); RDW-CV 19.5 % (11.9-14.6); WBC 11.3 K/uL (4.0-11.0)
[2016-10-18 12:48] LABS: INR - (THERAPEUTIC) 1.08 (0.92-1.07); PROTIME 11.4 SECONDS (9.8-11.4); PTT 27 SECONDS (25-32)
[2016-10-18 12:58] LABS: ALBUMIN 2.5 gm/dL (3.5-5.0); ALK PHOS 85 IU/L (33-138); ALT 34 IU/L (12-78); ANION GAP 12.1 (10.0-19.0); AST 33 IU/L (10-40); BLOOD UREA NITROGEN 22 mg/dL (6-24); CALCIUM 8.8 mg/dL (8.5-10.5); CHLORIDE 107 mMol/L (96-110); CO2 28 mMol/L (22-32); ESTIMATED GFR (MDRD EQUATION) > 60; POTASSIUM 4.1 mMol/L (3.7-5.1); SODIUM 143 mMol/L (135-145); TOTAL BILIRUBIN 0.2 mg/dL (0.0-1.5); TOTAL PROTEIN 6.4 g/dL (6.0-8.4)
== END 2016-10-18 13:52 | disposition disaster alternative care site (69) ==
LOC: GMED 12:06
PROVIDERS: Nurse Practitioner Family
DX: J44.9 Chronic obstructive pulmonary disease, unspecified (principal); Z99.81 Dependence on supplemental oxygen; Z88.0 Allergy status to penicillin; Z79.82 Long term (current) use of aspirin; Z79.899 Other long term (current) drug therapy